=== PATIENT | female | born 1985 | race Two or more races ===

== ENCOUNTER 2017-05-11 14:07 | Inpatient (IN) | payer MEDICAID ==
[2017-05-11] VITALS (15 sets, daily range): BP systolic 138–158; BP diastolic 70–103
[~2017-05-11] VITALS: Ht 162.6 cm; Wt 103.3 kg
[~2017-05-11 14:07] MED LIST: IBUP-1984 PO
[2017-05-11 15:13] LABS: INR 0.9 INR; PROTHROMBIN TIME 9.7 SECONDS (9.0-12.0)
[2017-05-11 15:14] LABS: BASOPHILS % (AUTO) 0.5 % (0-1); EOSINOPHILS # (AUTO) 0.2 X10'3 (0-0.9); EOSINOPHILS % (AUTO) 2.4 % (0-6); HEMATOCRIT 37.1 % (35.0-45.0); HEMOGLOBIN 12.7 g/dl (12.0-16.0); LYMPHOCYTES # (AUTO) 3.4 X10'3 (1.1-4.8); LYMPHOCYTES % (AUTO) 40.9 % (21-51); MEAN CORPUSCULAR HEMOGLOBIN 31.6 PG (27.0-31.0); MEAN CORPUSCULAR HGB CONC 34.4 % (33.0-36.5); MEAN CORPUSCULAR VOLUME 91.9 FL (78-98); MEAN PLATELET VOLUME 7.9 FL (7.4-10.4); MONOCYTES # (AUTO) 0.5 X10'3 (0-0.9); MONOCYTES % (AUTO) 6.4 % (2-12); NEUTROPHILS # (AUTO) 4.1 X10'3 (1.8-7.7); NEUTROPHILS % (AUTO) 49.8 % (42-75); PLATELET COUNT 342 X10'3 (140-440); RED BLOOD COUNT 4.03 X10'6 (4.20-5.60); RED CELL DISTRIBUTION WIDTH 13.9 % (11.5-14.5); WHITE BLOOD COUNT 8.3 X10'3 (4.5-11.0)
[2017-05-11 15:16] LABS: CLARITY,URINE SLIGHTLY CLOUDY (Clear); COLOR,URINE YELLOW (Yellow); GLUCOSE, URINE NEGATIVE (Neg); KETONES,URINE NEGATIVE (Neg); LEUKOCYTE ESTERASE ,URINE NEGATIVE (Neg); NITRITES, URINE NEGATIVE (Neg); OCCULT BLOOD,URINE SMALL (Neg); PH,URINE 5.5 (4.8-8.0); PROTEIN,URINE NEGATIVE (Neg); UROBILINOGEN,URINE 0.2 E.U/dL (0.2-1.0)
[2017-05-11 15:17] LABS: UA COLLECTION TYPE CLN CATCH MIDSTREAM
[2017-05-11 15:18] LABS: URINE HCG NEGATIVE (NEG)
[2017-05-11 15:19] LABS: ALANINE AMINOTRANSFERASE 29 U/L (12-78); ALBUMIN 3.6 G/DL (3.4-5.0); ALBUMIN/GLOBULIN RATIO 0.8 (1.1-1.5); ALKALINE PHOSPHATASE 139 IU/L (46-116); ANION GAP 12 (8-16); ASPARTATE AMINO TRANSFERASE 21 U/L (10-37); BILIRUBIN,TOTAL 0.2 MG/DL (0.1-1.0); BLOOD UREA NITROGEN 9 MG/DL (7-18); BUN/CREATININE RATIO 11.5 (6.6-38.0); CALCIUM 9.3 MG/DL (8.5-10.1); CHLORIDE 106 MMOL/L (99-107); CREATININE 0.78 MG/DL (0.40-0.90); GLUCOSE 86 MG/DL (70-104); POTASSIUM 3.7 MMOL/L (3.5-5.1); SODIUM 145 MMOL/L (135-145); TOTAL CARBON DIOXIDE 26.7 MMOL/L (24-32); TOTAL PROTEIN 8.2 G/DL (6.4-8.2); eGFR 85 ML/MIN
[2017-05-11 15:24] LABS: BACTERIA,URINE FEW /HPF (Neg); MUCUS STRANDS NONE SEEN /LPF (Neg); RBC,URINE 0-2 /HPF (0-2); SQUAMOUS EPITHELIAL CELL,UR MANY /LPF (FEW); TRANSITIONAL EPI CELLS,URINE FEW /HPF; WBC,URINE 0-4 /HPF (0-4)
[2017-05-11] MEDS ORDERED: morphine 4 MG/ML inj SYRINge IV ONE (16:45)
[2017-05-11] MEDS ORDERED: ondansetron/PF 4mg/2ml inj IV ONE (16:45)
[2017-05-11] MEDS ORDERED: normal saline 1000ml 1,000 ML IV ONE (16:45)
[2017-05-11 16:57] LABS: LIPASE 102 U/L (73-393)
[2017-05-11] MEDS ORDERED: BUPIVAcaine/PF 2.5 mg/ml (0.25%) 30ml vial ONE (17:13)
[2017-05-11] MEDS ORDERED: ringers solution, lacted 1,000 ML IV SCH (17:18)
[2017-05-11] MEDS ORDERED: ondansetron/PF 4mg/2ml inj IV PRN ×2 (17:20→18:55)
[2017-05-11] MEDS ORDERED: labetalol 5mg/ml 20ml inj. IV ONE (17:20)
[2017-05-11] MEDS ORDERED: desflurane 240ml liquid inh. IH ONE (17:20)
[2017-05-11] MEDS ORDERED: proCHLORperazine 10 MG/2 ml inj IV PRN (17:20)
[2017-05-11] MEDS ORDERED: morphine 4 MG/ML inj SYRINge IV PRN ×3 (17:20→18:55)
[2017-05-11] MEDS ORDERED: glycopyrrolate 0.2mg/ml inj ONE (17:20)
[2017-05-11] MEDS ORDERED: meperidine/PF 50mg/ml syringe IV PRN ×3 (17:20)
[2017-05-11] MEDS ORDERED: neostigmine methylsulfate 1 MG/ML 10ml vial ONE (17:20)
[2017-05-11] MEDS ORDERED: ondansetron/PF 4mg/2ml inj ONE ×2 (17:20→17:50)
[2017-05-11] MEDS ORDERED: clindamycin phosphate 150mg/ml inj. ONE (17:27)
[2017-05-11] MEDS ORDERED: fentaNYL/PF 50MCG/1 ML 2ML syringe ONE (17:32)
[2017-05-11] MEDS ORDERED: midazolam 2 mg/2 ml injection ONE (17:32)
[2017-05-11] MEDS ORDERED: LIDOcaine 2% 5ml jelly ONE ×2 (17:33)
[2017-05-11] MEDS ORDERED: propofol inj 20 ML IV ONE (17:49)
[2017-05-11] MEDS ORDERED: LIDOcaine 2% (20mg/ml) 5ml vial ONE (17:49)
[2017-05-11] MEDS ORDERED: dexamethasone sod phosphate 4mg/ml inj. ONE (17:49)
[2017-05-11] MEDS ORDERED: rocuronium 10mg/ml inj IV ONE (17:49)
[2017-05-11] MEDS ORDERED: morphine 10mg/ml inj. ONE (18:18)
[2017-05-11] MEDS ORDERED: albuterol 60 PUFF/8GM Inhaler IH ONE (18:19)
[2017-05-11] MEDS ORDERED: ipratropium/albuterol 3ml nebule IH ONE (18:30)
[2017-05-11] MEDS: morphine 4 MG/ML inj SYRINge IV PRN ×3 (18:58→21:18)
[2017-05-11] MEDS ORDERED: ketorolac trometh. 30mg/ml inj. IV ONE (23:30)
[2017-05-12] MEDS: normal saline 1000ml 1,000 ML IV SCH ×4 (01:10→23:53)
[2017-05-12] MEDS: morphine 4 MG/ML inj SYRINge IV PRN ×6 (04:55→22:14)
[2017-05-12 06:07] LABS: BASOPHILS % (AUTO) 0.3 % (0-1); EOSINOPHILS # (AUTO) 0.1 X10'3 (0-0.9); EOSINOPHILS % (AUTO) 0.8 % (0-6); HEMATOCRIT 33.7 % (35.0-45.0); HEMOGLOBIN 11.6 g/dl (12.0-16.0); LYMPHOCYTES # (AUTO) 1.2 X10'3 (1.1-4.8); LYMPHOCYTES % (AUTO) 13.5 % (21-51); MEAN CORPUSCULAR HEMOGLOBIN 31.7 PG (27.0-31.0); MEAN CORPUSCULAR HGB CONC 34.4 % (33.0-36.5); MEAN CORPUSCULAR VOLUME 92.1 FL (78-98); MEAN PLATELET VOLUME 7.7 FL (7.4-10.4); MONOCYTES # (AUTO) 0.1 X10'3 (0-0.9); MONOCYTES % (AUTO) 1.7 % (2-12); NEUTROPHILS # (AUTO) 7.5 X10'3 (1.8-7.7); NEUTROPHILS % (AUTO) 83.7 % (42-75); PLATELET COUNT 304 X10'3 (140-440); RED BLOOD COUNT 3.65 X10'6 (4.20-5.60); RED CELL DISTRIBUTION WIDTH 13.8 % (11.5-14.5)
[2017-05-12 06:36] LABS: ALANINE AMINOTRANSFERASE 67 U/L (12-78); ALBUMIN 3.2 G/DL (3.4-5.0); ALBUMIN/GLOBULIN RATIO 0.8 (1.1-1.5); ALKALINE PHOSPHATASE 131 IU/L (46-116); ANION GAP 13 (8-16); ASPARTATE AMINO TRANSFERASE 66 U/L (10-37); BILIRUBIN,TOTAL 0.3 MG/DL (0.1-1.0); BLOOD UREA NITROGEN 8 MG/DL (7-18); BUN/CREATININE RATIO 9.2 (6.6-38.0); CALCIUM 8.5 MG/DL (8.5-10.1); CHLORIDE 106 MMOL/L (99-107); CREATININE 0.87 MG/DL (0.40-0.90); GLUCOSE 132 MG/DL (70-104); SODIUM 141 MMOL/L (135-145); TOTAL CARBON DIOXIDE 21.6 MMOL/L (24-32); TOTAL PROTEIN 7.1 G/DL (6.4-8.2); eGFR 75 ML/MIN
[2017-05-12 07:00] VITALS: BP 115/60
[2017-05-12 11:00] VITALS: BP 126/72
[2017-05-12] MEDS ORDERED: HYDROcodone/acetaminophen 10/325mg tab PO PRN (16:20)
[2017-05-12] MEDS ORDERED: HYDR-565 PO (16:50)
[2017-05-12] MEDS: HYDROcodone/acetaminophen 10/325mg tab PO PRN (17:06)
[2017-05-12 20:00] VITALS: BP 116/74
[2017-05-13] VITALS: BP 116/68
[2017-05-13] MEDS: HYDROcodone/acetaminophen 10/325mg tab PO PRN ×2 (03:05→06:34)
[2017-05-13 05:35] LABS: BASOPHILS % (AUTO) 0.5 % (0-1); EOSINOPHILS # (AUTO) 0.1 X10'3 (0-0.9); EOSINOPHILS % (AUTO) 1.5 % (0-6); HEMATOCRIT 32.3 % (35.0-45.0); HEMOGLOBIN 11.1 g/dl (12.0-16.0); LYMPHOCYTES # (AUTO) 3.7 X10'3 (1.1-4.8); LYMPHOCYTES % (AUTO) 39.8 % (21-51); MEAN CORPUSCULAR HEMOGLOBIN 31.6 PG (27.0-31.0); MEAN CORPUSCULAR HGB CONC 34.3 % (33.0-36.5); MEAN CORPUSCULAR VOLUME 92.3 FL (78-98); MEAN PLATELET VOLUME 7.6 FL (7.4-10.4); MONOCYTES # (AUTO) 0.6 X10'3 (0-0.9); MONOCYTES % (AUTO) 6.7 % (2-12); NEUTROPHILS # (AUTO) 4.8 X10'3 (1.8-7.7); NEUTROPHILS % (AUTO) 51.5 % (42-75); PLATELET COUNT 282 X10'3 (140-440); RED CELL DISTRIBUTION WIDTH 13.8 % (11.5-14.5); WHITE BLOOD COUNT 9.3 X10'3 (4.5-11.0)
[2017-05-13 05:44] LABS: ALANINE AMINOTRANSFERASE 51 U/L (12-78); ALBUMIN 3.2 G/DL (3.4-5.0); ALBUMIN/GLOBULIN RATIO 0.8 (1.1-1.5); ALKALINE PHOSPHATASE 118 IU/L (46-116); ANION GAP 12 (8-16); ASPARTATE AMINO TRANSFERASE 33 U/L (10-37); BILIRUBIN,TOTAL 0.2 MG/DL (0.1-1.0); BLOOD UREA NITROGEN 13 MG/DL (7-18); BUN/CREATININE RATIO 15.1 (6.6-38.0); CALCIUM 8.4 MG/DL (8.5-10.1); CHLORIDE 109 MMOL/L (99-107); CREATININE 0.86 MG/DL (0.40-0.90); GLUCOSE 90 MG/DL (70-104); POTASSIUM 3.8 MMOL/L (3.5-5.1); SODIUM 145 MMOL/L (135-145); TOTAL CARBON DIOXIDE 24.5 MMOL/L (24-32); eGFR 76 ML/MIN
[2017-05-13 07:00] VITALS: BP 151/86
[2017-05-13 09:21] VITALS: BP 145/86
== END 2017-05-13 09:26 | disposition home or self-care (01) | DRG 263 ==
LOC: ER 14:07 → MED 3N 18:53
PROVIDERS: ADMIT Internal Medicine; ATTEND Surgery
PROC: 0FT44ZZ Resection of Gallbladder, Percutaneous Endoscopic Approach (ICD-10-PCS; principal; 2017-05-11 17:20)
DX: K80.00 Calculus of gallbladder with acute cholecystitis without obstruction (principal); F32.9 Major depressive disorder, single episode, unspecified; I34.1 Nonrheumatic mitral (valve) prolapse; Z88.1 Allergy status to other antibiotic agents
CPT/HCPCS: 36415; 76700; 80053; 81001; 81025; 83690; 85025; 85610; 87070; 94640; 94760; 96374; 99285; A7000; J1100; J1885; J2001; J2175; J2250; J2270; J2405; J2704; J2710; J3010; J3490; J7030; J7120

== ENCOUNTER 2017-05-14 17:06 | Inpatient (IN) | payer MEDICAID ==
[~2017-05-14] VITALS: Ht 165.1 cm; Wt 104.5 kg
[~2017-05-14 17:06] MED LIST changes: +HYDR-565 PO
[2017-05-14 18:06] LABS: BASOPHILS % (AUTO) 0.4 % (0-1); EOSINOPHILS # (AUTO) 0.1 X10'3 (0-0.9); EOSINOPHILS % (AUTO) 2.2 % (0-6); HEMATOCRIT 40.3 % (35.0-45.0); HEMOGLOBIN 13.9 g/dl (12.0-16.0); LYMPHOCYTES # (AUTO) 1.6 X10'3 (1.1-4.8); MEAN CORPUSCULAR HEMOGLOBIN 31.9 PG (27.0-31.0); MEAN CORPUSCULAR HGB CONC 34.5 % (33.0-36.5); MEAN CORPUSCULAR VOLUME 92.6 FL (78-98); MEAN PLATELET VOLUME 7.9 FL (7.4-10.4); MONOCYTES # (AUTO) 0.5 X10'3 (0-0.9); MONOCYTES % (AUTO) 8.6 % (2-12); NEUTROPHILS # (AUTO) 3.6 X10'3 (1.8-7.7); NEUTROPHILS % (AUTO) 60.8 % (42-75); PLATELET COUNT 361 X10'3 (140-440); RED BLOOD COUNT 4.36 X10'6 (4.20-5.60); RED CELL DISTRIBUTION WIDTH 14.1 % (11.5-14.5); WHITE BLOOD COUNT 5.9 X10'3 (4.5-11.0)
[2017-05-14 18:13] LABS: CLARITY,URINE CLEAR (Clear); COLOR,URINE YELLOW (Yellow); GLUCOSE, URINE 100 mg/dl (Neg); KETONES,URINE TRACE mg/dl (Neg); LEUKOCYTE ESTERASE ,URINE NEGATIVE (Neg); NITRITES, URINE NEGATIVE (Neg); OCCULT BLOOD,URINE NEGATIVE (Neg); PROTEIN,URINE 100 mg/dl (Neg); UROBILINOGEN,URINE >=8.0 E.U/dL (0.2-1.0)
[2017-05-14 18:20] LABS: INR 0.9 INR; PROTHROMBIN TIME 9.7 SECONDS (9.0-12.0)
[2017-05-14 18:21] LABS: UA COLLECTION TYPE CLN CATCH MIDSTREAM
[2017-05-14 18:23] LABS: BACTERIA,URINE NONE SEEN /HPF (Neg); MUCUS STRANDS FEW /LPF (Neg); RBC,URINE 0-2 /HPF (0-2); SQUAMOUS EPITHELIAL CELL,UR FEW /LPF (FEW); WBC,URINE 0-4 /HPF (0-4)
[2017-05-14 18:29] LABS: ALANINE AMINOTRANSFERASE 968 U/L (12-78); ALBUMIN 3.9 G/DL (3.4-5.0); ALBUMIN/GLOBULIN RATIO 0.8 (1.1-1.5); ALKALINE PHOSPHATASE 279 IU/L (46-116); ANION GAP 11 (8-16); BILIRUBIN,TOTAL 1.3 MG/DL (0.1-1.0); BLOOD UREA NITROGEN 9 MG/DL (7-18); CALCIUM 9.7 MG/DL (8.5-10.1); CHLORIDE 103 MMOL/L (99-107); CREATININE 0.75 MG/DL (0.40-0.90); GLUCOSE 99 MG/DL (70-104); POTASSIUM 3.9 MMOL/L (3.5-5.1); SODIUM 141 MMOL/L (135-145); TOTAL CARBON DIOXIDE 27.2 MMOL/L (24-32); TOTAL PROTEIN 8.5 G/DL (6.4-8.2); eGFR 89 ML/MIN
[2017-05-14 18:31] LABS: ASPARTATE AMINO TRANSFERASE 1591 U/L (10-37)
[2017-05-14] MEDS ORDERED: morphine 4 MG/ML inj SYRINge IV ONE ×2 (21:40→23:15)
[2017-05-14] MEDS ORDERED: ondansetron/PF 4mg/2ml inj IV ONE (21:40)
[2017-05-14 23:00] VITALS: BP 149/89
[2017-05-14] MEDS ORDERED: magnesium 2GM in 50ml NS 50 ML IV PRN (23:10)
[2017-05-14] MEDS ORDERED: mag hydrox/Alum hydrox/simeth 30ml oral suspension PO PRN (23:10)
[2017-05-14] MEDS ORDERED: potassium Cl 40MEQ/NS 500ml 500 ML IV PRN ×2 (23:10)
[2017-05-14] MEDS ORDERED: magnesium 4gm in 100ml NS 100 ML IV PRN (23:10)
[2017-05-14] MEDS ORDERED: magnesium hydroxide 30ml (MOM) UD suspension PO PRN (23:10)
[2017-05-14] MEDS ORDERED: morphine 4 MG/ML inj SYRINge IV PRN (23:10)
[2017-05-14] MEDS: normal saline 1000ml 1,000 ML IV SCH (23:22)
[2017-05-14 23:30] VITALS: BP 149/89
[2017-05-15 04:59] LABS: BASOPHILS % (AUTO) 0.6 % (0-1); EOSINOPHILS # (AUTO) 0.1 X10'3 (0-0.9); EOSINOPHILS % (AUTO) 2.5 % (0-6); HEMATOCRIT 37.4 % (35.0-45.0); HEMOGLOBIN 12.7 g/dl (12.0-16.0); LYMPHOCYTES # (AUTO) 2.1 X10'3 (1.1-4.8); LYMPHOCYTES % (AUTO) 38.5 % (21-51); MEAN CORPUSCULAR HGB CONC 33.8 % (33.0-36.5); MEAN CORPUSCULAR VOLUME 91.5 FL (78-98); MEAN PLATELET VOLUME 8.2 FL (7.4-10.4); MONOCYTES # (AUTO) 0.4 X10'3 (0-0.9); MONOCYTES % (AUTO) 7.6 % (2-12); NEUTROPHILS # (AUTO) 2.8 X10'3 (1.8-7.7); NEUTROPHILS % (AUTO) 50.8 % (42-75); PLATELET COUNT 310 X10'3 (140-440); RED BLOOD COUNT 4.09 X10'6 (4.20-5.60); RED CELL DISTRIBUTION WIDTH 13.1 % (11.5-14.5); WHITE BLOOD COUNT 5.4 X10'3 (4.5-11.0)
[2017-05-15 05:18] LABS: ALBUMIN 3.3 G/DL (3.4-5.0); ALBUMIN/GLOBULIN RATIO 0.8 (1.1-1.5); ALKALINE PHOSPHATASE 342 IU/L (46-116); ANION GAP 11 (8-16); BLOOD UREA NITROGEN 6 MG/DL (7-18); BUN/CREATININE RATIO 7.5 (6.6-38.0); CHLORIDE 105 MMOL/L (99-107); GLUCOSE 91 MG/DL (70-104); MAGNESIUM 1.8 MG/DL (1.5-2.4); POTASSIUM 3.9 MMOL/L (3.5-5.1); SODIUM 143 MMOL/L (135-145); TOTAL CARBON DIOXIDE 26.6 MMOL/L (24-32); TOTAL PROTEIN 7.5 G/DL (6.4-8.2); eGFR 83 ML/MIN
[2017-05-15 05:19] LABS: ALANINE AMINOTRANSFERASE 1068 U/L (12-78); ASPARTATE AMINO TRANSFERASE 1346 U/L (10-37)
[2017-05-15 07:14] VITALS: BP 133/80
[2017-05-15 07:22] VITALS: BP 148/80
[2017-05-15] MEDS: K and/or MAG REPLACEMENT MC SCH (07:54)
[2017-05-15] MEDS: morphine 4 MG/ML inj SYRINge IV PRN ×8 (08:02→23:31)
[2017-05-15] MEDS: normal saline 1000ml 1,000 ML IV SCH ×2 (08:20→19:07)
[2017-05-15 13:46] VITALS: BP 123/78
[2017-05-15] MEDS: ondansetron/PF 4mg/2ml inj IV PRN ×2 (14:55→23:23)
[2017-05-15 19:00] VITALS: BP 139/79
[2017-05-15] MEDS: acetaminophen 325mg tablet PO PRN (23:42)
[2017-05-16] MEDS: normal saline 1000ml 1,000 ML IV SCH ×2 (05:10→15:15)
[2017-05-16 05:16] LABS: BASOPHILS % (AUTO) 0.6 % (0-1); EOSINOPHILS # (AUTO) 0.3 X10'3 (0-0.9); EOSINOPHILS % (AUTO) 5.6 % (0-6); HEMATOCRIT 37.1 % (35.0-45.0); HEMOGLOBIN 12.6 g/dl (12.0-16.0); LYMPHOCYTES # (AUTO) 1.8 X10'3 (1.1-4.8); LYMPHOCYTES % (AUTO) 34.4 % (21-51); MEAN CORPUSCULAR HEMOGLOBIN 31.6 PG (27.0-31.0); MEAN PLATELET VOLUME 7.8 FL (7.4-10.4); MONOCYTES # (AUTO) 0.4 X10'3 (0-0.9); MONOCYTES % (AUTO) 8.1 % (2-12); NEUTROPHILS # (AUTO) 2.7 X10'3 (1.8-7.7); NEUTROPHILS % (AUTO) 51.3 % (42-75); PLATELET COUNT 292 X10'3 (140-440); RED BLOOD COUNT 3.99 X10'6 (4.20-5.60); RED CELL DISTRIBUTION WIDTH 13.9 % (11.5-14.5); WHITE BLOOD COUNT 5.2 X10'3 (4.5-11.0)
[2017-05-16 05:40] LABS: ALANINE AMINOTRANSFERASE 725 U/L (12-78); ALBUMIN 3.2 G/DL (3.4-5.0); ALBUMIN/GLOBULIN RATIO 0.8 (1.1-1.5); ALKALINE PHOSPHATASE 339 IU/L (46-116); ANION GAP 11 (8-16); ASPARTATE AMINO TRANSFERASE 453 U/L (10-37); BILIRUBIN,TOTAL 1.2 MG/DL (0.1-1.0); BLOOD UREA NITROGEN 6 MG/DL (7-18); BUN/CREATININE RATIO 9.2 (6.6-38.0); CALCIUM 8.6 MG/DL (8.5-10.1); CHLORIDE 106 MMOL/L (99-107); CREATININE 0.65 MG/DL (0.40-0.90); GLUCOSE 91 MG/DL (70-104); MAGNESIUM 1.8 MG/DL (1.5-2.4); POTASSIUM 3.8 MMOL/L (3.5-5.1); SODIUM 141 MMOL/L (135-145); TOTAL CARBON DIOXIDE 23.6 MMOL/L (24-32); TOTAL PROTEIN 7.2 G/DL (6.4-8.2); eGFR > 90 ML/MIN
[2017-05-16 07:40] VITALS: BP 133/71
[2017-05-16] MEDS: K and/or MAG REPLACEMENT MC SCH (08:00)
[2017-05-16] MEDS: acetaminophen 325mg tablet PO PRN ×3 (09:19→20:15)
[2017-05-16] MEDS ORDERED: magnesium citrate 296ml oral solution PO ONE ×2 (10:05→12:15)
[2017-05-16] MEDS ORDERED: benzocaine/benzethon 30gm ointment RC PRN (13:30)
[2017-05-16] MEDS ORDERED: phenylephrine/cocoa butter (Preparation H) suppository RC PRN (13:30)
[2017-05-16] MEDS ORDERED: hydrocortisone acetate 25mg rectal suppository RC PRN (13:50)
[2017-05-16 18:50] VITALS: BP 150/100
[2017-05-16] MEDS: docusate sod 100mg capsule PO SCH (20:00)
[2017-05-17] MEDS: normal saline 1000ml 1,000 ML IV SCH ×2 (01:00→14:04)
[2017-05-17] MEDS: acetaminophen 325mg tablet PO PRN ×2 (01:38→07:28)
[2017-05-17 05:55] LABS: ALANINE AMINOTRANSFERASE 461 U/L (12-78); ALBUMIN 3.2 G/DL (3.4-5.0); ALBUMIN/GLOBULIN RATIO 0.8 (1.1-1.5); ALKALINE PHOSPHATASE 302 IU/L (46-116); ANION GAP 9 (8-16); ASPARTATE AMINO TRANSFERASE 156 U/L (10-37); BILIRUBIN,TOTAL 0.6 MG/DL (0.1-1.0); BLOOD UREA NITROGEN 4 MG/DL (7-18); BUN/CREATININE RATIO 6.3 (6.6-38.0); CALCIUM 8.7 MG/DL (8.5-10.1); CHLORIDE 108 MMOL/L (99-107); CREATININE 0.64 MG/DL (0.40-0.90); GLUCOSE 99 MG/DL (70-104); MAGNESIUM 1.8 MG/DL (1.5-2.4); POTASSIUM 3.6 MMOL/L (3.5-5.1); SODIUM 142 MMOL/L (135-145); TOTAL CARBON DIOXIDE 24.7 MMOL/L (24-32); TOTAL PROTEIN 7.1 G/DL (6.4-8.2); eGFR > 90 ML/MIN
[2017-05-17 06:05] LABS: BASOPHILS % (AUTO) 0.4 % (0-1); EOSINOPHILS # (AUTO) 0.2 X10'3 (0-0.9); EOSINOPHILS % (AUTO) 2.7 % (0-6); HEMATOCRIT 35.2 % (35.0-45.0); LYMPHOCYTES % (AUTO) 37.3 % (21-51); MEAN CORPUSCULAR HEMOGLOBIN 31.5 PG (27.0-31.0); MEAN CORPUSCULAR HGB CONC 34.2 % (33.0-36.5); MEAN CORPUSCULAR VOLUME 92.2 FL (78-98); MEAN PLATELET VOLUME 8.4 FL (7.4-10.4); MONOCYTES # (AUTO) 0.7 X10'3 (0-0.9); MONOCYTES % (AUTO) 8.5 % (2-12); NEUTROPHILS # (AUTO) 4.1 X10'3 (1.8-7.7); NEUTROPHILS % (AUTO) 51.1 % (42-75); PLATELET COUNT 310 X10'3 (140-440); RED BLOOD COUNT 3.82 X10'6 (4.20-5.60)
[2017-05-17] MEDS: K and/or MAG REPLACEMENT MC SCH (07:26)
[2017-05-17] MEDS: docusate sod 100mg capsule PO SCH (07:27)
[2017-05-17 08:38] VITALS: BP 140/78
[2017-05-17 13:25] LABS: HBSAG SCREEN Negative (Negative); HEP A AB, IGM Negative (Negative); HEP B CORE AB, IGM Negative (Negative); HEPATITIS C ANTIBODY <0.1 s/co ratio (0.0-0.9)
[2017-05-17 14:53] VITALS: BP 146/94
== END 2017-05-17 17:28 | disposition home or self-care (01) | DRG 253 ==
LOC: ER 17:07 → ED HOLD 23:10 → SUR 3N 05-15 00:13
PROVIDERS: ADMIT Family Medicine; ATTEND Internal Medicine
DX: K92.0 Hematemesis (principal); F32.9 Major depressive disorder, single episode, unspecified; R94.5 Abnormal results of liver function studies; T40.2X5A Adverse effect of other opioids, initial encounter; K59.03 Drug induced constipation; Z83.3 Family history of diabetes mellitus; Z90.49 Acquired absence of other specified parts of digestive tract; Z88.1 Allergy status to other antibiotic agents; Z79.899 Other long term (current) drug therapy; Y92.89 Other specified places as the place of occurrence of the external cause
CPT/HCPCS: 36415; 74181; 76700; 80053; 80074; 81001; 83605; 83735; 84145; 85025; 85610; 87070; 96374; 96375; 99285; A6258; J2270; J2405; J7030